=== PATIENT | female | born 1965 | race American Indian/Alaskan Native ===

== ENCOUNTER 2016-09-30 09:31 | Outpatient (CLI) | payer BC ==
[2016-09-30 10:55] LABS: Blood Urea Nitrogen 20 mg/dL (7-17)
[2016-09-30] MEDS ORDERED: NACL ONE (12:11)
--- NOTE | 2016-09-30 13:52 | Cat Scan Report ---
CT CHEST WITH CONTRAST: HISTORY: Nonproductive cough. TECHNIQUE: Helical CT following IV contrast. Sagittal and coronal reformatted images. FINDINGS: Heart size is normal. There is no evidence of adenopathy within the mediastinum. Pulmonary leonardo are free of any mass and the lungs are clear of infiltrates. The pleura is unremarkable. No masses involve the chest wall. Small hiatal hernia is noted. IMPRESSION: Small hiatal hernia, otherwise, unremarkable CT chest.
--- NOTE | 2016-09-30 13:54 | Cat Scan Report ---
CT SCAN OF THE ABDOMEN AND PELVIS WITH CONTRAST: HISTORY: Abdominal pain, non-productive cough. TECHNIQUE: Helical CT in 1.25mm intervals following IV contrast. Sagittal and coronal reconstructions. FINDINGS: The liver is normal in size and is without focal defect. No gallstones or biliary dilatation are noted. The spleen and pancreas demonstrate a normal size and attenuation with no evidence of abnormal mass. The kidneys are normal in size and position with no evidence of hydronephrosis or mass. The adrenal glands are normal. There is no intestinal obstruction or ascites. Normal appendix. The abdominal aorta is normal. No abnormalities are identified within the retroperitoneum or mesentery. Total hysterectomy changes are suspected. There is no evidence of peritoneal air or fluid. There is no evidence of any abnormal masses or fluid collections within the pelvis. No adenopathy is identified. The bladder is normal. IMPRESSION: Unremarkable CT scan of the abdomen and pelvis with contrast.
== END 2016-09-30 09:32 | disposition home or self-care (01) ==
LOC: CT 09:31
PROVIDERS: ATTEND Obstetrics & Gynecology Gynecologic Oncology
DX: R05 Cough (principal); K44.9 Diaphragmatic hernia without obstruction or gangrene; Z90.710 Acquired absence of both cervix and uterus
CPT/HCPCS: 36415; 71260; 74177; 82565; 84520; Q9967

== ENCOUNTER 2018-09-02 05:34 | Emergency (ER) | payer BC, OTHER ==
[2018-09-02] MEDS ORDERED: TYLENOL PO ONE (06:25)
[2018-09-02] MEDS ORDERED: TYLENOL ONE (06:29)
[2018-09-02] MEDS ORDERED: IBUPROFEN PO ONE (09:20)
--- NOTE | 2018-09-02 09:23 | Emergency Department Report ---
HPI - General Chief Complaint: Extremity Injury, Lower Time Seen by Provider: 09/02/18 09:08 - HPI HPI: 53-year-old -[place] female who presents to the emergency department with a one to 2 day history of right foot pain. She feels it on the bottom of the foot and it radiates around towards the bottom of her anne. She denies any trauma including any twisting of her foot. She says that she tried soaking it in Epsom salt yesterday that seemed to make it worse and she was having difficulty bearing weight. She received some Tylenol at triage here and says that that has helped with her symptoms. She denies any significant swelling, skin color change or lesions. She has a past medical history of previous uterine cancer that is in remission, hypertension. ED Past Medical Hx - Past Medical History Previous Medical History?: Yes Hx Hypertension: Yes Hx of Cancer: Yes (uterine ca-in remission since 2015) - Surgical History Past Surgical History?: Yes Additional Surgical History: hysterectomy 2016 - Social History Smoking Status: Never Smoker Substance Use Type: None - Medications Home Medications: Home Medications Medication Instructions Recorded Confirmed Last Taken Type Cyclobenzaprine [Flexeril 10mg] 10 mg PO TID PRN #14 tablet 03/30/14 Unknown Rx HYDROcodone/APAP 5-325 [[place] 1 each PO Q6HR PRN #14 tablet 03/30/14 Unknown Rx 5/325] RX: Atenolol/Chlorthalidone 1 tab PO DAILY 03/30/14 03/30/14 03/30/14 08:30 History [Tenoretic 50-25 mg] RX: Ibuprofen 800 mg PO Q8H PRN #20 tablet 09/02/18 Unknown Rx ED Review of Systems ROS: Stated complaint: R FOOT/LEG PAIN Other details as noted in HPI Constitutional: denies: chills, fever Musculoskeletal: arthralgia. denies: back pain Skin: denies: rash, lesions Neurological: denies: numbness, paresthesias Physical Exam - Physical Exam Vital Signs: Vital Signs 09/02/18 09/02/18 09/02/18 05:58 06:03 06:30 Temperature 97.3 F L 97.3 F L Pulse Rate 66 Respiratory 18 18 Rate Blood Pressure 136/68 O2 Sat by Pulse 98 Oximetry Physical Exam: GENERAL: The patient is well-developed well-nourished. HEENT: Normocephalic. Atraumatic. Patient has moist mucous membranes. EYES: Extraocular motions are intact. NECK: Supple. Trachea is midline. CHEST/LUNGS: Clear to auscultation. There is no respiratory distress noted. HEART/CARDIOVASCULAR: Regular. There is no tachycardia. There is no obvious murmur. ABDOMEN: Abdomen is soft, nontender. Patient has normal bowel sounds. Obese habitus. SKIN: Skin is warm and dry. NEURO: The patient is awake, alert, and oriented. The patient is cooperative. The patient has no focal neurologic deficits. The patient has normal speech. MUSCULOSKELETAL: There is some reproducible tenderness to palpation to the distal plantar half of the right foot but no obvious deformities. There is no limitation range of motion. There is no evidence of acute injury. ED Course Vital Signs 09/02/18 09/02/18 09/02/18 05:58 06:03 06:30 Temperature 97.3 F L 97.3 F L Pulse Rate 66 Respiratory 18 18 Rate Blood Pressure 136/68 O2 Sat by Pulse 98 Oximetry ED Medical Decision Making - Radiology Data Radiology results: image reviewed interpreted by me: x-ray of the right foot does not show any fracture, dislocation or any acute process. - Medical Decision Making Patient presents with atraumatic right foot pain for the past 1-2 days. There does not appear to be any skin color change or asymmetry and swelling. The pain is reproducible to the plantar portion of the foot. An x-ray was done that does not show any fracture, dislocation or any acute process. Patient placed in a postop surgical sandal and given a referral for podiatry. She was given a dose of Tylenol and ibuprofen and says that her pain has greatly improved. Patient was seen ambulatory. - Differential Diagnosis plantar fasciitis, cellulitis, occult fracture, arthritis Critical Care Time: No Critical care attestation.: If time is entered above; I have spent that time in minutes in the direct care of this critically ill patient, excluding procedure time. ED Disposition Clinical Impression: Right foot pain, Plantar fasciitis Disposition: - TO HOME OR SELFCARE Is pt being admited?: No Condition: Stable Instructions: Plantar Fasciitis (ED), Arthralgia (ED) Additional Instructions: Please follow-up with your primary care physician. I am giving you a referral for 2 different podiatrists. Return to the emergency Department with any worsening of your symptoms or any acute distress. Prescriptions: RX: Ibuprofen 800 mg PO Q8H PRN #20 tablet PRN Reason: Pain , Severe (7-10) Referrals: VICTORINA BROWN MD [Staff Physician] - 2-3 Days MARA DAVILA DPM [Staff Physician] - 2-3 Days Time of Disposition: 10:30
[2018-09-02 10:50] VITALS: BP 134/71
--- NOTE | 2018-09-02 14:28 | XRay Report ---
PROCEDURE: XR FOOT 3+V RT TECHNIQUE: 3 views of the right foot. HISTORY:right foot pain COMPARISON: None FINDINGS: There is no acute fracture seen. There is no dislocation seen. There is a tiny plantar heel spur. Lateral view suggests some soft tissue swelling over the forefoot. Correlate clinically. IMPRESSION: There is no acute bony abnormality identified. Tiny heel spur. This document is electronically signed by Neelam Dee MD., September 02 2018 11:39:58 AM ET
== END 2018-09-02 10:50 | disposition home or self-care (01) ==
LOC: ED 05:34
DX: M72.2 Plantar fascial fibromatosis (principal); I10 Essential (primary) hypertension; Z90.710 Acquired absence of both cervix and uterus
CPT/HCPCS: 99283